=== PATIENT | female | born 1960 | race Caucasian/White ===

== ENCOUNTER 2016-12-31 08:58 | Emergency (ER) | payer BC ==
[2016-12-31 09:05] VITALS: BP 123/79
--- NOTE | 2016-12-31 09:24 | UC ---
Knee Pain HPI - HPI Summary HPI Summary: 56 yo female with left knee pain after twisting it getting out of a car 3-4 days ago able to walk with a limp feels like her heal will buckle - History of Current Complaint Chief Complaint: UCLowerExtremity Stated Complaint: KNEE INJURY Time Seen by Provider: 12/31/16 09:10 Hx Obtained From: Patient Onset/Duration: Sudden Onset Severity Initially: Moderate Severity Currently: Moderate Pain Intensity: 4 - worse with wt bearing Pain Scale Used: 0-10 Numeric Character: Sharp Aggravating Factor(s): Movement, Weight Bearing Alleviating Factor(s): Position Associated Signs And Symptoms: Positive: Swelling Able to Bear Weight: Yes - Allergies/Home Medications Allergies/Adverse Reactions: Allergies Allergy/AdvReac Type Severity Reaction Status Date / Time No Known Allergies Allergy Verified 12/31/16 09:01 PMH/Surg Hx/FS Hx/Imm Hx Previously Healthy: Yes - Surgical History Surgical History: Yes Surgery Procedure, Year, and Place: 2002 HYSTERECTOMY [facility]. 2007 TUMORS OF BLADDER [facility] - Family History Known Family History: Positive: Hypertension - Social History Alcohol Use: None Substance Use Type: None Smoking Status (MU): Never Smoked Tobacco Review of Systems Constitutional: Negative Skin: Negative Eyes: Negative ENT: Negative Respiratory: Negative Cardiovascular: Negative Gastrointestinal: Negative Genitourinary: Negative Motor: Negative Neurovascular: Negative Musculoskeletal: Arthralgia Neurological: Negative Psychological: Negative All Other Systems Reviewed And Are Negative: Yes Physical Exam Triage Information Reviewed: Yes Appearance: Well-Appearing, No Pain Distress, Well-Nourished Vital Signs: Initial Vital Signs Temp 98.4 F 12/31/16 09:02 Pulse 99 12/31/16 09:02 Resp 16 12/31/16 09:02 BP 123/79 12/31/16 09:02 Pulse Ox 100 12/31/16 09:02 Eyes: Positive: Conjunctiva Clear ENT: Positive: Hearing grossly normal. Negative: Nasal congestion, Nasal drainage, Trismus, Muffled/hoarse voice Neck: Positive: Supple, Nontender Respiratory: Positive: Lungs clear, Normal breath sounds, No respiratory distress, No accessory muscle use Cardiovascular: Positive: RRR, No Murmur Musculoskeletal: Positive: Other: - see image Psychological Exam: Normal Skin Exam: Normal Knee Pain Course/Dx - Differential Dx/Diagnosis Provider Diagnoses: fracture ofd proximal left fibula(non displaced/closed). internal derangement of left knee Discharge - Discharge Plan Condition: Stable Disposition: HOME Patient Education Materials: Leg Fracture (ED), Swollen Knee Joint (ED) Referrals: Angel Barfield MD [Medical Doctor] - As Soon As Possible Additional Instructions: suspect a fracture of proximal left tibia maybe internal knee damage as well (ligament or cartilage) knee immobilizer when wt bearing rest elevate ice twice daily aleve 1-2 pills twice daily with food call orthopedic office and make follow up appt Images Front/Back of Body, Lg ([place]): 1 - effusion/FROM/tender medial joint line
--- NOTE | 2016-12-31 09:48 | RAD ---
INDICATION: Left knee injury. TECHNIQUE: 4 views of the left knee were obtained. FINDINGS: The bones are normal alignment. There is a moderate joint effusion present. There is mild cortical irregularity of the proximal metaphysis of the fibula possibly representing a nondisplaced fracture. Joint spaces appear maintained. IMPRESSION: 1. JOINT EFFUSION. 2. POSSIBLE NONDISPLACED FRACTURE OF THE PROXIMAL FIBULA.
== END 2016-12-31 10:15 | disposition home or self-care (01) ==
LOC: UCEAST 08:58
DX: S82.832A Other fracture of upper and lower end of left fibula, initial encounter for closed fracture (principal); X50.1XXA Overexertion from prolonged static or awkward postures, initial encounter; Y93.9 Activity, unspecified; Y92.9 Unspecified place or not applicable; Y99.9 Unspecified external cause status; M25.462 Effusion, left knee; M23.92 Unspecified internal derangement of left knee
CPT/HCPCS: 99212; G0463